=== PATIENT | female | born 1965 ===

== ENCOUNTER 2016-12-27 10:05 | Emergency (ER) | payer OTHER ==
[2016-12-27 10:20] VITALS: RESP 16; TEMP 98.1; O2SAT 98
--- NOTE | 2016-12-27 10:30 | C.PDOC ---
History Of Present Illness 51 yr old female presents to the ER with complaints of swelling to the face after applying Vx vapor rub to her eyes, mouth and nose few days ago. Patient denies fever, SOB, mouth swelling, tongue swelling or vomiting. Time Seen by Provider: 12/27/16 10:15 Chief Complaint (Nursing): Abnormal Skin Integrity History Per: Patient History/Exam Limitations: no limitations Onset/Duration Of Symptoms: Days Past Medical History Reviewed: Historical Data, Nursing Documentation, Vital Signs Vital Signs: Last Vital Signs Temp 98.1 F 12/27/16 10:14 Pulse 70 12/27/16 11:19 Resp 16 12/27/16 11:19 BP 121/68 12/27/16 11:19 Pulse Ox 98 12/27/16 11:19 Family History: States: No Known Family Hx Review Of Systems Except As Marked, All Systems Reviewed And Found Negative. Constitutional: Negative for: Fever ENT: Negative for: Mouth Swelling Respiratory: Negative for: Shortness of Breath Gastrointestinal: Negative for: Vomiting Skin: Positive for: Other (Swelling to the face ) Physical Exam - Physical Exam Appears: Non-toxic, No Acute Distress Skin: Warm, Dry, Other ((+) Thick coarse edematous skin to face.) Head: Atraumatic, Normacephalic Eye(s): bilateral: Normal Inspection, PERRL, EOMI Oral Mucosa: Moist Tongue: Normal Appearing, No Swelling Lips: Normal Appearing, No Swelling Throat: Normal, No Erythema, No Exudate Neck: Normal, Normal ROM, Supple Chest: Symmetrical, No Tenderness Cardiovascular: Rhythm Regular, No Murmur Respiratory: Normal Breath Sounds, No Rales, No Rhonchi, No Stridor, No Wheezing Extremity: Normal ROM, No Swelling Neurological/Psych: Oriented x3, Normal Speech, Normal Motor Medical Decision Making Medical Decision Making: PLAN: * Bacitracin TOP Disposition Counseled Patient/Family Regarding: Diagnosis, Need For Followup, Rx Given - Disposition Referrals: [facility] [Outside] Disposition: HOME/ ROUTINE Disposition Time: 10:57 Condition: STABLE Additional Instructions: Siga en la clinica, o con armstrong doctor. Use la medicina indicada. Regrese a la elana de emergencia con cualquier otro problema. Prescriptions: Bacitracin OINT 1 applic TD TID #1 tube Hard Fat/Phenylephrine [place] [Hemorrhoidal 88.7%-0.25%] 1 sup NM DAILY #6 sup Hydrocortisone [Cortisone] 14 gm TP DAILY #28 gm Instructions: Anal Itching (ED), Dermatitis (ED) Forms: [employer] (Citizen Of [place]) - POA Present On Arrival: None - Clinical Impression Clinical Impression: Contact dermatitis, External hemorrhoid - Scribe Statement The provider has reviewed the documentation as recorded by the Lida Ricci Provider Attestation: All medical record entries made by the Lida were at my direction and personally dictated by me. I have reviewed the chart and agree that the record accurately reflects my personal performance of the history, physical exam, medical decision making, and the department course for this patient. I have also personally directed, reviewed, and agree with the discharge instructions and disposition.
[2016-12-27] MEDS ORDERED: Bacitracin 500 Units/gm Oint Foilpak UD TOP ONE (11:08)
[2016-12-27] MEDS ORDERED: Bacitracin 500 Units/gm Oint Foilpak UD ONE (11:08)
[2016-12-27 11:20] VITALS: BP 121/68; PULSE 70
== END 2016-12-27 11:19 | disposition home or self-care (01) ==
LOC: C.ER 10:05
DX: L25.9 Unspecified contact dermatitis, unspecified cause (principal); K64.4 Residual hemorrhoidal skin tags

== ENCOUNTER 2017-11-06 17:33 | Emergency (ER) | payer OTHER ==
[2017-11-06 18:08] LABS: BASO % 0.6 % (0.0-2.0); EOS # 0.1 K/uL (0.0-0.7); EOS % 2.3 % (0.0-4.0); HEMOGLOBIN 7.9 g/dL (11.0-16.0); LYMPH # 0.7 K/uL (1.0-4.3); LYMPH % 20.6 % (20.0-40.0); MEAN CORPUSCULAR HEMOGLOBIN 18.1 pg (27.0-31.0); MEAN CORPUSCULAR HGB CONC 30.1 g/dL (33.0-37.0); MEAN PLATELET VOLUME 8.5 fL (7.2-11.7); MONO # 0.3 K/uL (0.0-0.8); MONO % 9.1 % (0.0-10.0); NEUT # 2.3 K/uL (1.8-7.0); NEUT % 67.4 % (50.0-75.0); NRBC % 0.3 % (0.0-2.0); RBC 4.35 Mil/uL (3.80-5.20); WHITE BLOOD COUNT 3.4 K/uL (4.8-10.8)
[2017-11-06 18:13] LABS: INR 1.1; PROTHROMBIN TIME 12.3 SECONDS (9.7-12.2)
[2017-11-06 18:29] LABS: ALB/GLOB RATIO 1.3 (1.0-2.1); ALBUMIN 4.4 g/dL (3.5-5.0); ALT/SGPT 19 U/L (9-52); AST/SGOT 22 U/L (14-36); BLOOD UREA NITROGEN 14 mg/dL (7-17); CALCIUM 9.4 mg/dl (8.6-10.4); GFR AFRICAN-AMERICAN > 60; GFR NON-AFRICAN AMERICAN > 60
[2017-11-06 19:25] VITALS: BP 122/83; PULSE 92; RESP 16; TEMP 98.6; O2SAT 98
--- NOTE | 2017-11-06 20:32 | C.PDOC ---
History Of Present Illness Patient is a 52 y/o female who presents to the ED by referral of PMD for evaluation of low H&H levels. Patient reports to have been tired for the last 2- 3 months. Patient denies any dysuria, hematochezia, or darkness of stool. No other physical complaints at this time. Chief Complaint (Nursing): Abnormal Labs History Per: Patient History/Exam Limitations: no limitations Onset/Duration Of Symptoms: Days (2-3 months) Current Symptoms Are (Timing): Still Present Recent travel outside of the [place]: No Past Medical History Reviewed: Historical Data, Nursing Documentation, Vital Signs Vital Signs: Last Vital Signs Temp 98.6 F 11/06/17 19:23 Pulse 92 H 11/06/17 19:23 Resp 16 11/06/17 19:23 BP 122/83 11/06/17 19:23 Pulse Ox 98 11/06/17 20:36 - Medical History PMH: Anemia Surgical History: No Surg Hx Family History: States: No Known Family Hx - Social History Hx Tobacco Use: No Hx Alcohol Use: No Hx Substance Use: No - Immunization History Hx Tetanus Toxoid Vaccination: No Hx Influenza Vaccination: No Hx Pneumococcal Vaccination: No Review Of Systems Constitutional: Positive for: Other (generalized fatigue ) Gastrointestinal: Negative for: Melena, Hematochezia Genitourinary: Negative for: Dysuria Physical Exam - Physical Exam Appears: Well, Non-toxic, No Acute Distress Skin: Normal Color, Warm, Dry Head: Atraumatic, Normacephalic Eye(s): bilateral: Conjunctiva Pale Oral Mucosa: Moist Chest: Symmetrical Cardiovascular: Rhythm Regular, No Murmur Respiratory: Normal Breath Sounds, No Rales, No Rhonchi, No Wheezing Gastrointestinal/Abdominal: Soft, No Tenderness, No Guarding Extremity: Normal ROM (x4), No Tenderness, No Swelling Neurological/Psych: Oriented x3, Normal Speech, Normal Cognition Gait: Steady ED Course And Treatment - Laboratory Results Result Diagrams: 11/06/17 18:01 11/06/17 18:01 O2 Sat by Pulse Oximetry: 98 Progress Note: Blood work ordered. Patient was recommended blood transfusion secondary to symptomatic anemia; patient refused transfusion and admission. The patient declines admission, and wishes to leave the Emergency Department. This action is against my medical advice to the patient and the decision was made with informed refusal. The patient was told that admission is necessary and a full explanation of the rationale was given. The risks of leaving were explained to the patient and include, but are not limited to, worsening of known or currently unknown conditions, permanent disability and from undiagnosed or untreated conditions The patient has the capacity to make this informed decision and understands the clinical situation and my explanation of the risks of leaving. The patient voluntarily accepts these risks, and a signed AMA form documenting our conversation was obtained. The patient was given the opportunity to ask questions and reconsider. The patient was encouraged to return to the Emergency Department at any time for further care. Disposition - Disposition Referrals: [facility] Shamika Sharaantonia, [Non-Staff] - Disposition: AGAINST MEDICAL ADVICE Disposition Time: 18:45 Condition: UNKNOWN Additional Instructions: TAWANDA SHAH, thank you for letting us take care of you today. Your provider was Armani Artis DO and you were treated for ABNORMAL LABS. The emergency medical care you received today was directed at your acute symptoms. If you were prescribed any medication, please fill it and take as directed. It may take several days for your symptoms to resolve. Return to the Emergency Department if your symptoms worsen, do not improve, or if you have any other problems. Please contact your doctor or call one of the physicians/clinics you have been referred to that are listed on the Patient Visit Information form that is included in your discharge packet. Bring any paperwork you were given at discharge with you along with any medications you are taking to your follow up visit. Our treatment cannot replace ongoing medical care by a primary care provider outside of the emergency department. Thank you for allowing the [facility] team to be part of your care today. YOU SIGNED OUT AGAINST MEDICAL ADVICE. YOU REFUSED A BLOOD TRANSFUSION. PLEASE FOLLOW UP WITH YOUR PRIMARY CARE DOCTOR IN 1-2 DAYS FOR RE-EVALUATION AND FURTHER TREATMENT. TAWANDA SHAH, adi por dejarnos atenderlo hoy. Sneed proveedor fue Armani Artis DO y usted recibi tratamiento por ABNORMAL LABS. La atencin mdica de emergencia que recibi hoy estaba dirigida a praveena sntomas agudos. Si le prescribieron algn medicamento, llnelo y tome segn las indicaciones. Praveena s ntomas pueden tardar varios valdez en resolverse. Regrese al Departamento de Emergencia si praveena sntomas empeoran, no mejoran o si tiene algn otro problema. Comunquese con sneed mdico o llame a margarette de los mdicos / clnicas a los que cruz sido referido que figura en el formulario de Informacin de visita del paciente que se incluye en sneed paquete de kadie. Traiga todos los documentos que recibi al momento del kadie junto con los medicamentos que est tomando en sneed visita de seguimiento. Nuestro tratamiento no puede reemplazar la atencin mdica en curso por un proveedor de atencin primaria fuera del departamento de emergencia. Adi por permitir que el equipo de [facility] sea parte de sneed cuidado hoy. FIRMASTE EN CONTRA DE ASESORAMIENTO MDICO. USTED RECHAZ BERNICE TRANSFUSIN DE PARVEEN. POR FAVOR, SIGA CON SNEED MDICO DE ATENCIN PRIMARIA EN 1-2 VALDEZ PARA REEVALUACI N Y TRATAMIENTO ADICIONAL. Instructions: Anemia Caused by Low Iron, Adult (DC) Forms: Gen Discharge Inst Belarusian Print Language: FRISIAN - Clinical Impression Clinical Impression: Anemia - Scribe Statement The provider has reviewed the documentation as recorded by the Scribe Shilpi Dailey All medical record entries made by the Scribe were at my direction and personally dictated by me. I have reviewed the chart and agree that the record accurately reflects my personal performance of the history, physical exam, medical decision making, and the department course for this patient. I have also personally directed, reviewed, and agree with the discharge instructions and disposition.
== END 2017-11-06 19:23 | disposition left against medical advice (07) ==
LOC: C.ER 17:33
DX: D64.9 Anemia, unspecified (principal)

== ENCOUNTER 2018-06-25 12:45 | Emergency (ER) | payer OTHER ==
[2018-06-25 13:25] VITALS: RESP 20
[2018-06-25] MEDS ORDERED: Sodium Chloride 0.9% 1,000 ML IV ONE (13:55)
[2018-06-25] MEDS ORDERED: Sodium Chloride 0.9% 1,000 ML ONE (14:03)
--- NOTE | 2018-06-25 14:11 | RAD ---
Date of service: 06/25/2018 PROCEDURE: CHEST RADIOGRAPH, 1 VIEW HISTORY: SOB COMPARISON: None available. FINDINGS: LUNGS: Questionable patchy opacity at right lung base. Follow-up advised. Rule out pneumonia. PLEURA: No pneumothorax or pleural fluid seen. CARDIOVASCULAR: No aortic atherosclerotic calcification present. Normal. OSSEOUS STRUCTURES: No significant abnormalities. VISUALIZED UPPER ABDOMEN: Normal. OTHER FINDINGS: None. IMPRESSION: Possible right basilar early infiltrate. Follow-up advised.o
[2018-06-25 14:33] LABS: BASO % 0.7 % (0.0-2.0); EOS # 0.1 K/uL (0.0-0.7); EOS % 1.3 % (0.0-4.0); LYMPH # 0.7 K/uL (1.0-4.3); LYMPH % 17.1 % (20.0-40.0); MEAN CORPUSCULAR HEMOGLOBIN 26.3 pg (27.0-31.0); MEAN CORPUSCULAR HGB CONC 32.5 g/dL (33.0-37.0); MEAN PLATELET VOLUME 8.2 fL (7.2-11.7); MONO # 0.3 K/uL (0.0-0.8); NEUT # 2.9 K/uL (1.8-7.0); NEUT % 72.9 % (50.0-75.0); NRBC % 0.2 % (0.0-2.0); RBC 4.02 Mil/uL (3.80-5.20); RED CELL DISTRIBUTION WIDTH 15.3 % (11.5-14.5); WHITE BLOOD COUNT 3.9 K/uL (4.8-10.8)
[2018-06-25 14:35] LABS: HEMOGLOBIN 10.6 g/dL (11.0-16.0); MEAN CELL VOLUME 80.9 fL (81.0-99.0)
[2018-06-25 14:48] LABS: ALB/GLOB RATIO 1.5 (1.0-2.1); ALBUMIN 4.2 g/dL (3.5-5.0); ALT/SGPT 16 U/L (9-52); AST/SGOT 23 U/L (14-36); BLOOD UREA NITROGEN 16 mg/dL (7-17); GFR NON-AFRICAN AMERICAN > 60
[2018-06-25 14:58] LABS: B-TYPE NATRIURETIC PEPTIDE 28.8 pg/mL (0-900)
--- NOTE | 2018-06-25 15:02 | RAD ---
PROCEDURE: Left hand Radiographs. HISTORY: tender 5th MCP, ? splinter 1 yr ago COMPARISON: None available. FINDINGS: BONES: No acute displaced fracture. JOINTS: No dislocation. SOFT TISSUES: Unremarkable. No evidence of radiopaque foreign body. OTHER FINDINGS: None. IMPRESSION: No acute displaced fracture, dislocation, or significant joint effusion identified. If symptoms persist, or if there is continued clinical concern, x-ray follow-up in 7-10 days should be considered.
--- NOTE | 2018-06-25 15:14 | C.PDOC ---
History Of Present Illness 53-year-old female presents to the ED complaining of body pain to the entire left side of her body for 2 weeks. Pain is digitally and positionally reproducible. She denies any SOB, visual changes, dizziness, nausea, vomiting, or diarrhea. 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 Denies any recent trauma or fall. Patient denies taking any OTC meds for the pain. Patient reports PMHx of anemia and is noncompliant with iron pills. She also complains of pain to the left 5th MCP, where she got a splinter a year ago, requesting imaging. Time Seen by Provider: 06/25/18 13:45 Chief Complaint (Nursing): Weakness/Neurological Deficit History Per: Patient History/Exam Limitations: no limitations Onset/Duration Of Symptoms: Days Current Symptoms Are (Timing): Still Present Past Medical History Reviewed: Historical Data, Nursing Documentation, Vital Signs Vital Signs: Last Vital Signs Temp 98.3 F 06/25/18 13:21 Pulse 97 H 06/25/18 13:21 Resp 20 06/25/18 13:21 BP 146/81 06/25/18 13:21 Pulse Ox 98 06/25/18 13:21 - Medical History PMH: Anemia Family History: States: No Known Family Hx - Social History Hx Tobacco Use: No Hx Alcohol Use: No Hx Substance Use: No - Immunization History Hx Tetanus Toxoid Vaccination: No Hx Influenza Vaccination: No Hx Pneumococcal Vaccination: No Review Of Systems Constitutional: Negative for: Fever, Chills Cardiovascular: Negative for: Chest Pain Respiratory: Negative for: Shortness of Breath Gastrointestinal: Negative for: Nausea, Vomiting Musculoskeletal: Positive for: Shoulder Pain (Left), Arm Pain (Left), Hand Pain (Left), Leg Pain (Left), Foot Pain (Left) Skin: Negative for: Rash, Lesions Neurological: Negative for: Weakness, Numbness, Incoordination Physical Exam - Physical Exam Appears: Non-toxic, No Acute Distress Skin: Warm, Dry, No Pale Head: Atraumatic, Normacephalic Eye(s): bilateral: Normal Inspection, PERRL, EOMI Oral Mucosa: Moist Neck: Supple Chest: Symmetrical, No Tenderness Cardiovascular: Rhythm Regular, No Murmur Respiratory: Normal Breath Sounds, No Accessory Muscle Use Gastrointestinal/Abdominal: Bowel Sounds (active), Soft, No Tenderness, No Distention Extremity: Normal ROM, Tenderness (throughout, including the left trapezius, left deltoid, left upper arm, left thigh, and left lower leg), No Deformity (Left 5th MCP appears unremarkable, with no open wound or foreign body visualized), No Swelling Pulses: Left Dorsalis Pedis: Normal, Right Dorsalis Pedis: Normal Neurological/Psych: Oriented x3, Normal Speech, Normal Cranial Nerves, No Cerebellar Signs, Normal Motor, Normal Sensation ED Course And Treatment - Laboratory Results Result Diagrams: 06/25/18 14:28 06/25/18 14:28 Lab Results: Troponin I < 0.0120 ng/mL (0.00-0.120) 06/25/18 14:28 NT-Pro-B Natriuret Pep 28.8 pg/mL (0-900) 06/25/18 14:28 Total Bilirubin 0.3 mg/dL (0.2-1.3) 06/25/18 14:28 AST 23 U/L (14-36) 06/25/18 14:28 ALT 16 U/L (9-52) 06/25/18 14:28 Alkaline Phosphatase 74 U/L (38-126) 06/25/18 14:28 Total Protein 7.0 g/dL (6.3-8.3) 06/25/18 14:28 Albumin 4.2 g/dL (3.5-5.0) 06/25/18 14:28 Globulin 2.9 gm/dL (2.2-3.9) 06/25/18 14:28 Albumin/Globulin Ratio 1.5 (1.0-2.1) 06/25/18 14:28 Lab Interpretation: Abnormal (+ microcytic anemia, stable) ECG: Interpreted By Me ECG Rhythm: Sinus Rhythm ECG Interpretation: Normal Rate From EC O2 Sat by Pulse Oximetry: 98 (RA) Pulse Ox Interpretation: Normal - Radiology CXR: Interpreted by Me CXR Interpretation: Yes: No Acute Disease - Other Rad L hand X-Ray: Interpreted by Me (no deformity nor FB @ L 5th MCP) cxr PA/Lat X-Ray: Interpreted by Me (no pna/pnx, " dense breasts" (repeated for suspicion of ? 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 recommended no FB/deformity @ L 5th MCP from wooden splinter 1 yr ago pt asking for further eval though normal finger exam refer to Ortho/Hand via Clinic Chronic Fe def Anemia compliance w Fe Supplements reinforced opt f/u with clinic Disposition Doctor Will See Patient In The: Office Counseled Patient/Family Regarding: Studies Performed, Diagnosis - Disposition Referrals: [facility] [Outside] [facility] [Outside] [facility] [Outside] [facility] [Outside] Disposition: HOME/ ROUTINE Disposition Time: 15:24 Condition: GOOD Additional Instructions: molestiast muscular: Sigue ibuprofeno/advil 400 mg cada 6 horas reynaldo necessario Deficienca da [place] Sigue tomando armstrong chi 2 veces al carrie DIARIO Hemoglobina 10.6 hoy Dedo fatimah placas normales sigue ibuprofeno reynaldo necessario Instructions: Anemia Caused by Low Iron, Adult (DC), Muscle and Bone Pain (DC) Forms: [employer] (Sami) Print Language: BENINESE - Clinical Impression Clinical Impression: Muscular aches - Scribe Statement The provider has reviewed the documentation as recorded by the Lida Wise Provider Attestation: All medical record entries made by the Daleibe were at my direction and personally dictated by me. I have reviewed the chart and agree that the record accurately reflects my personal performance of the history, physical exam, medical decision making, and the department course for this patient. I have also personally directed, reviewed, and agree with the discharge instructions and disposition.
[2018-06-25 15:30] LABS: SQUAMOUS EPITHIAL 9 /hpf (0-5); URINE BILIRUBIN NEGATIVE (NEGATIVE); URINE BLOOD NEGATIVE (NEGATIVE); URINE CLARITY Hazy (Clear); URINE COLOR Yellow (YELLOW); URINE GLUCOSE (UA) NORMAL (Normal); URINE LEUKOCYTE ESTERASE NEG Leu/uL (Negative); URINE PROTEIN 1+ mg/dL (NEGATIVE); URINE UROBILINOGEN NORMAL mg/dL (0.2-1.0)
--- NOTE | 2018-06-25 15:42 | RAD ---
HISTORY: no cough, ? early infiltrate on RLL portable. COMPARISON: Chest x-ray performed 06/25/18 at 1357 hr TECHNIQUE: Chest PA and lateral FINDINGS: LUNGS: Focal retrocardiac opacity of unclear etiology. Considerations include consolidation, hiatal hernia, neoplasm. Please note that chest x-ray has limited sensitivity for the detection of pulmonary masses. PLEURA: No significant pleural effusion identified. No definite pneumothorax . CARDIOVASCULAR: Heart size appears within normal limits. Atherosclerotic calcification present. OSSEOUS STRUCTURES: No acute osseous abnormality identified. VISUALIZED UPPER ABDOMEN: Unremarkable. OTHER FINDINGS: None. IMPRESSION: Focal retrocardiac opacity of unclear etiology. Considerations include consolidation, hiatal hernia, neoplasm.
[2018-06-25 15:50] VITALS: BP 145/77; PULSE 85; TEMP 98; O2SAT 97
--- NOTE | 2018-06-27 15:00 | CARD ---
APPROVED REPORT Date of service: 06/25/2018 EKG Measurement Heart [id number] <Conclusion> Normal sinus rhythm Normal Electrocardiogram
== END 2018-06-25 15:49 | disposition home or self-care (01) ==
LOC: C.ER 12:45
DX: M79.10 Myalgia, unspecified site (principal)
CPT/HCPCS: 71045; 71046; 73130; 80053; 81001; 83880; 84484; 85025; 93005; 96361; 96374; 99285; J1885; J7030

== ENCOUNTER 2018-07-12 10:40 | Outpatient (CLI) | payer OTHER | END 2018-07-12 10:41 | disposition home or self-care (01) | LOC: C.MRIC 10:40 | DX: M79.642 Pain in left hand (principal) ==

== ENCOUNTER 2018-08-01 12:29 | Outpatient (CLI) | payer OTHER | END 2018-08-01 12:30 | disposition home or self-care (01) | LOC: C.LAB 12:29 | DX: E66.3 Overweight (principal) ==

== ENCOUNTER 2018-10-10 15:02 | Emergency (ER) | payer OTHER ==
[2018-10-10 15:10] VITALS: BP 123/81; PULSE 92; TEMP 98.6; O2SAT 98
--- NOTE | 2018-10-10 15:51 | C.PDOC ---
History Of Present Illness 53 year old female presents to ED with complaint of ongoing bilateral leg pain for the past 3 months that has worsened this past week. Patient states that he has pain to the medial aspect of both calves when walking. Pain relieved with rest. Patient denies trauma, weakness, numbness, dizziness, chest pain, headache, fatigue, and SOB. Time Seen by Provider: 10/10/18 15:25 Chief Complaint (Nursing): Lower Extremity Problem/Injury History Per: Patient History/Exam Limitations: no limitations Onset/Duration Of Symptoms: Other (3 months) Current Symptoms Are (Timing): Still Present Past Medical History Reviewed: Historical Data, Nursing Documentation, Vital Signs Vital Signs: Last Vital Signs Temp 98.6 F 10/10/18 15:07 Pulse 92 H 10/10/18 15:07 Resp 16 10/10/18 15:07 BP 123/81 10/10/18 15:07 Pulse Ox 98 10/10/18 15:07 Primary Care Provider: FAMILY PROVIDER,NO - Medical History PMH: Anemia, Asthma Surgical History: No Surg Hx Family History: States: Unknown Family Hx - Social History Hx Tobacco Use: No Hx Alcohol Use: No Hx Substance Use: No - Immunization History Hx Tetanus Toxoid Vaccination: No Hx Influenza Vaccination: No Hx Pneumococcal Vaccination: No Review Of Systems Constitutional: Negative for: Fever, Chills, Weakness Cardiovascular: Negative for: Chest Pain Respiratory: Negative for: Cough, Shortness of Breath Musculoskeletal: Positive for: Leg Pain (bilaterally) Neurological: Negative for: Weakness, Numbness, Headache, Dizziness Physical Exam - Physical Exam Appears: Well, Non-toxic, No Acute Distress Skin: Normal Color, Warm, Dry Head: Atraumatic, Normacephalic Neck: Normal ROM, Supple Chest: Symmetrical, No Deformity Extremity: Normal ROM, Calf Tenderness (mild tenderness to palpation bilaterally; no posterior calf tenderness, calves symmetrical), Capillary Refill (<2 seconds), No Deformity, No Swelling Pulses: Left Dorsalis Pedis: Normal, Right Dorsalis Pedis: Normal Neurological/Psych: Oriented x3, Normal Speech, Normal Cognition, Normal Motor, Normal Sensation Gait: Steady ED Course And Treatment O2 Sat by Pulse Oximetry: 98 (in RA) Pulse Ox Interpretation: Normal Medical Decision Making Medical Decision Making: Patient has not PMD for health care maintenance, referred to our clinic. Recommended follow up in clinic and stretching exercises. Patient given Motrin for pain. Disposition Counseled Patient/Family Regarding: Need For Followup, Rx Given - Disposition Referrals: [facility] [Outside] Disposition: HOME/ ROUTINE Disposition Time: 15:48 Condition: GOOD Additional Instructions: Follow up at the health clinic for management of your leg pain. You may take advil for pain control Prescriptions: Ibuprofen [Motrin Tab] 600 mg PO Q8 #30 tab Instructions: Leg Cramps (ED) Forms: [employer] (German) - Clinical Impression Clinical Impression: Bilateral leg cramps - PA / [employer] SUPERVISOR / Resident Statement MD/DO has reviewed & agrees with the documentation as recorded. (Joyce Kinney) - Scribe Statement The provider has reviewed the documentation as recorded by the Scribe (Joyce Kinney) All medical record entries made by the Scribe were at my direction and personally dictated by me. I have reviewed the chart and agree that the record accurately reflects my personal performance of the history, physical exam, medical decision making, and the department course for this patient. I have also personally directed, reviewed, and agree with the discharge instructions and disposition.
[2018-10-10 16:08] VITALS: RESP 18
== END 2018-10-10 16:08 | disposition home or self-care (01) ==
LOC: C.ER 15:02
DX: R25.2 Cramp and spasm (principal)